=== PATIENT | male | born 1935 | race Caucasian/White ===

== ENCOUNTER 2022-03-30 12:10 | Inpatient (IN) | payer MEDICARE, OTHER ==
[~2022-03-30] VITALS: Ht 165.1 cm; Wt 59.9 kg
--- NOTE | 2022-03-30 12:23 | NUR ---
BLOOD DRAWN AND SENT TO LAB
[2022-03-30] MEDS ORDERED: VANCOMYCIN 1 GM in IV D5W 250 ML IV ONE (12:30)
[2022-03-30] MEDS ORDERED: CEFEPIME 1 GM in IV D5W 50 ML IV ONE (12:30)
--- NOTE | 2022-03-30 12:30 | NUR ---
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 PLACED ON BED, AAOX2, UNLABORED BREATHING SATURATING AT 97% WITH 2LIT O2 VIA NC. KNOWN HX OF COPD, ABNORMAL POSTURE, MUSCLE WASTING AND ATROPHY.
--- NOTE | 2022-03-30 12:43 | NUR ---
MOVE SHEET SUBMITTED.
[2022-03-30 12:55] LABS: CALCIUM, SERUM 8.2 mg/dL (8.5-10.1); CARBON DIOXIDE 25 mmol/L (21-32); CHLORIDE 104 mmol/L (98-107); CREATININE 1.3 mg/dL (0.6-1.3); GLUCOSE 161 mg/dL (74-106); POTASSIUM 5.1 mmol/L (3.5-5.1); SODIUM SERUM 138 mmol/L (136-145); UREA NITROGEN, BLOOD 46 mg/dL (7-18)
[2022-03-30 13:01] LABS: ALANINE AMINOTRANSFERASE 68 U/L (12-78); ALBUMIN 2.7 g/dL (3.4-5.0); ALKALINE PHOSPHATASE 136 U/L (46-116); ASPARTATE AMINOTRANSFERASE 60 U/L (15-37); BILIRUBIN,DIRECT 0.2 mg/dL (0.0-0.2); BILIRUBIN,TOTAL 0.9 mg/dL (0.2-1.0); TOTAL PROTEIN, SERUM 6.3 g/dL (6.4-8.2)
[2022-03-30 13:06] LABS: BASOPHILS # (AUTO) 0.2 K/uL (0.0-0.2); BASOPHILS % (AUTO) 0.4 % (0.0-2.0); HEMATOCRIT 34 % (39-51); LYMPHOCYTES # (AUTO) 0.6 K/uL (0.8-4.8); LYMPHOCYTES % (AUTO) 1.5 % (20.0-44.0); MEAN CORPUSCULAR HGB CONC 32 g/dl (31.0-36.0); MEAN CORPUSCULAR VOLUME 102 fL (80-96); MONOCYTES % (AUTO) 2.4 % (2.0-12.0); NEUTROPHILS # (AUTO) 38.7 K/uL (1.8-8.9); NEUTROPHILS % (AUTO) 95.7 % (43.0-81.0); PLATELET COUNT (AUTO) 197 K/uL (150-450); RED BLOOD CELL COUNT(AUTO) 3.34 MIL/uL (4.5-6.0)
--- NOTE | 2022-03-30 13:06 | NUR ---
COVID TEST COLLECTED AND SENT
[2022-03-30] MEDS ORDERED: ACETAMINOPHEN 650 MG/SUPP.RECT RC ONE ×2 (13:07→13:30)
[2022-03-30 13:09] LABS: WHITE BLOOD COUNT (AUTO) 40.4 K/uL (4.3-11.0)
[2022-03-30] MEDS ORDERED: LEVE250T2 PO (13:10)
[2022-03-30] MEDS ORDERED: BISA10SU11 RC (13:10)
[2022-03-30] MEDS ORDERED: DOXY100C2 PO (13:10)
[2022-03-30] MEDS ORDERED: DOCU-141 PO (13:10)
[2022-03-30] MEDS ORDERED: CHOL100043 PO (13:10)
[2022-03-30] MEDS ORDERED: MULT-447 PO (13:10)
[2022-03-30] MEDS ORDERED: IPRA4AER IH (13:10)
[2022-03-30] MEDS ORDERED: NA P133E RC (13:10)
[2022-03-30] MEDS ORDERED: FURO-145 PO (13:10)
[2022-03-30] MEDS ORDERED: AMIN30LI2 PO (13:10)
[2022-03-30] MEDS ORDERED: MAGN400O6 PO (13:10)
[2022-03-30] MEDS ORDERED: IVER3TAB2 PO (13:10)
[2022-03-30] MEDS ORDERED: PERM60CR4 TP (13:10)
[2022-03-30] MEDS ORDERED: FLUT1BLS IH (13:10)
[2022-03-30] MEDS ORDERED: ACET-868 PO (13:10)
[2022-03-30] MEDS ORDERED: RIVA10TA PO (13:10)
--- NOTE | 2022-03-30 13:18 | NUR ---
PANEL ON-CALL PAGED
[2022-03-30 14:00] LABS: BILIRUBIN,URINE NEGATIVE (NEGATIVE); COLOR,URINE YELLOW (YELLOW); LEUKOCYTE ESTERASE ,URINE SMALL (NEGATIVE); NITRITE, URINE NEGATIVE (NEGATIVE); PROTEIN,URINE 30 mg/dl (NEGATIVE); UGLUCOSE NEGATIVE (NEGATIVE)
[2022-03-30 14:03] LABS: BACTERIA,URINE Rare /HPF (None Seen); RBC,URINE 0-2 /HPF (0-2); SQUAMOUS EPITHELIAL CELL,UR Few /HPF (None Seen)
[2022-03-30] MEDS ORDERED: MAGNESIUM HYDROXIDE 30 ML UDC PO PRN (15:00)
[2022-03-30] MEDS ORDERED: Z GUARD REMEDY 4 OZ OINT TP PRN (15:00)
[2022-03-30] MEDS ORDERED: ONDANSETRON HCL/PF 4 MG/2 ML VIAL IVP PRN (15:00)
[2022-03-30] MEDS ORDERED: NA PHOS,M-B/NA PHOS,DI-BA 1 EA ENEMA RC PRN (15:00)
[2022-03-30] MEDS ORDERED: BISACODYL SUPP (10 MG) 10 MG/SUPP.RECT SUPP.RECT RC PRN (15:00)
[2022-03-30] MEDS ORDERED: IV NS 0.9% 1,000 ML IV PRN (15:00)
[2022-03-30] MEDS ORDERED: MAG HYDROX/AL HYDROX/SIMETH 30 ML UDC PO PRN (15:00)
[2022-03-30 15:01] LABS: LYMPHOCYTES % (MANUAL) 4 % (16-48); MONOCYTES % (MANUAL) 3 % (0-11.0); NEUTROPHILS % (MANUAL) 92 (42-76)
[2022-03-30 15:02] LABS: BASOPHILS % (MANUAL) 0 % (0.0-2.0); EOSINOPHILS % (MANUAL) 1 % (0-4)
--- NOTE | 2022-03-30 18:10 | NUR ---
CONTACTED DR PALACIO WITH REGARDS TO PATIENT BP-76/36 ON A LOW SIDE FOR 3CONSECUTIVE READINGS- NO RESPONSE.
--- NOTE | 2022-03-30 18:30 | NUR ---
BED 105
--- NOTE | 2022-03-30 18:39 | NUR ---
REPORT GIVEN TO ENOCH BRADSHAW FOR SHOLA
--- NOTE | 2022-03-30 19:10 | NUR ---
DR PALACIO RESPONDED TO GIVE IV BOLUS 0.9 NS 1LIT- COMMENCED FOR LOW BP.
[2022-03-30] MEDS ORDERED: LEVETIRACETAM (250 MG) 250 MG TABLET PO ONE (21:09)
[2022-03-30] MEDS: LEVETIRACETAM (250 MG) 250 MG TABLET PO SCH (21:16)
--- NOTE | 2022-03-30 21:45 | NUR ---
LEVOPHED INITIATED AT 0.1MCG/KG/MIN FOR HYPOTENSION AT 18G TYLOR
[2022-03-30] MEDS: NOREPINEPHRINE 8 MG in IV NS 0.9% 242 ML IV PRN (21:46)
--- NOTE | 2022-03-30 21:55 | NUR ---
PT REMIANS HYPOTENSIVE. LEVOPHED TITRATED UP TO 0.2MCG/KG/MIN
--- NOTE | 2022-03-30 22:49 | NUR ---
[id number]
--- NOTE | 2022-03-30 22:56 | NUR ---
LEVOPHED TITRATED UP TO 0.3MCG/KG/MIN
--- NOTE | 2022-03-30 23:59 | NUR ---
REPORT GIVEN TO VANDANA
[2022-03-31] VITALS (68 sets, daily range): BP systolic 39–130; BP diastolic 31–83
--- NOTE | 2022-03-31 00:15 | NUR ---
LEVOPHED TITRATED UP TO 0.3MCG/KG/MIN
--- NOTE | 2022-03-31 00:52 | NUR ---
PT TRANSPORTED TO ROOM 261 VIA [facility] IN STABLE CONDITION
[2022-03-31 04:41] LABS: BASOPHILS # (AUTO) 0.1 K/uL (0.0-0.2); BASOPHILS % (AUTO) 0.3 % (0.0-2.0); HEMATOCRIT 34 % (39-51); HEMOGLOBIN 10.9 g/dL (13.5-17.5); LYMPHOCYTES # (AUTO) 0.6 K/uL (0.8-4.8); LYMPHOCYTES % (AUTO) 1.3 % (20.0-44.0); MEAN CORPUSCULAR HGB CONC 32 g/dl (31.0-36.0); MEAN CORPUSCULAR VOLUME 102 fL (80-96); MONOCYTES # (AUTO) 1.3 K/uL (0.1-1.30); MONOCYTES % (AUTO) 2.9 % (2.0-12.0); NEUTROPHILS # (AUTO) 43.1 K/uL (1.8-8.9); NEUTROPHILS % (AUTO) 95.5 % (43.0-81.0); PLATELET COUNT (AUTO) 163 K/uL (150-450); RED BLOOD CELL COUNT(AUTO) 3.29 MIL/uL (4.5-6.0)
[2022-03-31 04:58] LABS: WHITE BLOOD COUNT (AUTO) 45.1 K/uL (4.3-11.0)
[2022-03-31 05:13] LABS: ALANINE AMINOTRANSFERASE 70 U/L (12-78); ALBUMIN 2.4 g/dL (3.4-5.0); ALKALINE PHOSPHATASE 118 U/L (46-116); ASPARTATE AMINOTRANSFERASE 110 U/L (15-37); BILIRUBIN,DIRECT 0.7 mg/dL (0.0-0.2); BILIRUBIN,TOTAL 1.8 mg/dL (0.2-1.0); CARBON DIOXIDE 28 mmol/L (21-32); CHLORIDE 104 mmol/L (98-107); CREATININE 1.4 mg/dL (0.6-1.3); GLUCOSE 52 mg/dL (74-106); MAGNESIUM 1.9 mg/dL (1.8-2.4); PHOSPHORUS 3.1 mg/dL (2.5-4.9); SODIUM SERUM 138 mmol/L (136-145); TOTAL PROTEIN, SERUM 5.9 g/dL (6.4-8.2); UREA NITROGEN, BLOOD 44 mg/dL (7-18)
[2022-03-31 05:39] LABS: BAND % (MANUAL) 4 % (0.0-5.0); LYMPHOCYTES % (MANUAL) 4 % (16-48); MONOCYTES % (MANUAL) 2 % (0-11.0); NEUTROPHILS % (MANUAL) 80 (42-76)
[2022-03-31] MEDS ORDERED: NOREPINEPHRINE 8MG/250ML RTU 250 ML IV ONE (06:41)
[2022-03-31] MEDS: NOREPINEPHRINE 8 MG in IV NS 0.9% 242 ML IV PRN (06:47)
--- NOTE | 2022-03-31 07:52 | NUR ---
DATA INTEGRITY CONSULTANT. AM CARE GIVEN. REMAINING SAME OXYGEN TOLERATED WELL. SAT 98%. LEVOPHED 0.2MCG/KG/MIN VIDEO CONFERENCE SPECIALIST SHOWING S TACH. FC PATENT.. URINE DRAINING. WILL CONTINUE TO MONITOR VITALS..
--- NOTE | 2022-03-31 08:15 | NUR ---
ICU/RN SUGAR 50 AND [address] OLVERA. ORDERED TO SWITCH NS AT D5NS AT 100CC/HR, GIVE ORANGE JUICE PO IF ABLE TO SWALLOW SAFELY, AND GIVE 1/2AMP OF D50 NEEDED IF PT UNABLE TO DRINK ORANGE JUICE. ORDER ENTERED REPORT GIVEN TO MARIELENA BRADSHAW FOR SHOLA.
[2022-03-31] MEDS: IV D5/ 0.9% NACL 1,000 ML IV PRN ×2 (08:29→18:45)
[2022-03-31] MEDS ORDERED: DEXTROSE 50%-WATER 50 ML DISP.SYRIN IVP PRN (08:30)
[2022-03-31] MEDS: LEVETIRACETAM (250 MG) 250 MG TABLET PO SCH ×2 (08:36→21:58)
--- NOTE | 2022-03-31 08:37 | NUR ---
RN NOTES BS-47MG/DL ADMINISTERED DEXTROSE 25 ML IV PUSH , ALSO SEEN HOSPITALIST GET ORDER HYDROCORTISONE SOD 100 ML Q 8H, ORDER TAKEN AND CARRIED OUT. ADMINISTERED TWO ORANG JUICERS, PATIENT ASKING FOOD GET DIET ORDER REGULAR PUREED. WILL FOLLOW UP.
[2022-03-31] MEDS: HYDROCORTISONE SOD SUCCINATE 100 MG/2 ML VIAL IV SCH ×3 (08:41→21:58)
--- NOTE | 2022-03-31 09:17 | NUR ---
RN NOTES BS-110 MG/DL, RUNNING D5NS@100 ML/HR, ALSO GET INSERTED ESTIVEN MIDLINE INTACT . BP- 102/32, P-113, O2-96 % PATIENT ON 3LNC. CONTRACTED, OFFERED SOME SNACKS.
[2022-03-31] MEDS: FLUTICASONE/VILANTEROL 1 EACH BLST.W.DEV IH SCH (09:24)
--- NOTE | 2022-03-31 10:55 | NUR ---
rn notes collected covid -19 specimen at this time., per Dr erazo order.
[2022-03-31] MEDS: CEFEPIME 2 GM in IV D5W 100 ML IV SCH (12:30)
[2022-03-31] MEDS: NOREPINEPHRINE 32 MG in IV NS 0.9% 218 ML IV PRN (13:06)
[2022-03-31] MEDS: IV NS 0.9% 250 ML IV PRN (13:16)
--- NOTE | 2022-03-31 13:18 | NUR ---
rn notes patient NPO except Meds per Dr Gonzalez order .
[2022-03-31] MEDS ORDERED: VANCOMYCIN HCL 0.75 GM in IV D5W 250 ML IV SCH (14:00)
--- NOTE | 2022-03-31 15:12 | NUR ---
RN NOTES BLOOD CULTURE GET CALL FROM LAB BLOOD CULTURE BOTH POSITIVE COCCI IN [place], NOTIFIED HOSPITALIST , AND GET ORDER VANCOMYCIN PER PHARMACY.
--- NOTE | 2022-03-31 18:30 | NUR ---
rn notes pm care done, bs-187mg/dl, due medication administered, infusing Levophed 0.3 mcg/ml/min, and d5ns@100ml/hr intact on lyly midline intact, urine output was 680ml, bm x1, assist turn and reposition q 2 hr. patient refused pain, no acute respiratory distress, patient on o2-3lNC. endorsed oncoming nurse follow plan of care.
--- NOTE | 2022-03-31 19:32 | NUR ---
BOX OFFICE AGENT. INITIAL ASSESSMENT. RECEIVED THE PT REST IN BED. AWAKE, ALERT. PT HAS MUSCLE CONTRACTION. NPO. OXYGEN 3L VIA NASAL CANNULA. SAT 98%. NO ACUTE DISTRESS NOTED. SERVICES ADVISOR SHOWING NSR. FC PATENT.URINE DRAINING, IV RT AND LT HAND PIV AND RT UPPER ARM MID LINE. IVF D5NS 100ML/H. LEVOPHED 0.2MCG/KG/MIN, WILL CONTINUE TO MONITOR VITALS.
[2022-04-01] VITALS (65 sets, daily range): BP systolic 41–140; BP diastolic 23–102
--- NOTE | 2022-04-01 03:14 | NUR ---
sericulturist. am care given. remaining same oxygen tolerated well. sat 98%. hob elevated. turn and reposition q2h. iv rt upp er arm mid line. ivf d5ns 100ml/h. levophed 0.2mcg/kg/min. fc patent. will continue to monitor vitals.
[2022-04-01] MEDS: IV D5/ 0.9% NACL 1,000 ML IV PRN ×2 (04:50→15:45)
[2022-04-01] MEDS: HYDROCORTISONE SOD SUCCINATE 100 MG/2 ML VIAL IV SCH ×3 (05:03→21:02)
[2022-04-01 05:09] LABS: HEMATOCRIT 32 % (39-51); HEMOGLOBIN 10.4 g/dL (13.5-17.5); LYMPHOCYTES # (AUTO) 0.6 K/uL (0.8-4.8); LYMPHOCYTES % (AUTO) 1.4 % (20.0-44.0); MEAN CORPUSCULAR HGB CONC 32 g/dl (31.0-36.0); MEAN CORPUSCULAR VOLUME 102 fL (80-96); MONOCYTES # (AUTO) 1.8 K/uL (0.1-1.30); NEUTROPHILS # (AUTO) 42.3 K/uL (1.8-8.9); NEUTROPHILS % (AUTO) 94.6 % (43.0-81.0); PLATELET COUNT (AUTO) 179 K/uL (150-450); RED BLOOD CELL COUNT(AUTO) 3.14 MIL/uL (4.5-6.0)
[2022-04-01 05:20] LABS: WHITE BLOOD COUNT (AUTO) 44.8 K/uL (4.3-11.0)
[2022-04-01 05:25] LABS: BAND % (MANUAL) 2 % (0.0-5.0); LYMPHOCYTES % (MANUAL) 5 % (16-48)
[2022-04-01 05:26] LABS: MONOCYTES % (MANUAL) 3 % (0-11.0)
[2022-04-01 05:37] LABS: CALCIUM, SERUM 7.8 mg/dL (8.5-10.1); CARBON DIOXIDE 25 mmol/L (21-32); CHLORIDE 105 mmol/L (98-107); CREATININE 1.2 mg/dL (0.6-1.3); GLUCOSE 157 mg/dL (74-106); POTASSIUM 4.5 mmol/L (3.5-5.1); SODIUM SERUM 135 mmol/L (136-145); UREA NITROGEN, BLOOD 37 mg/dL (7-18)
--- NOTE | 2022-04-01 07:15 | NUR ---
RN OPENING NOTE RECEIVED THE PT REST IN BED. AOX3. ABLE TO MAKE NEEDS KNOWN. PT HAS MUSCLE CONTRACTION. NPO EXCEPT MEDS. OXYGEN 3L VIA NASAL CANNULA. SAT 96%. NO ACUTE DISTRESS NOTED. SIPHONER SHOWING ST. FC PATIENT DRAINING CLEAR YELLOW URINE VIA GRAVITY. IV ACCESS ESTIVEN MIDLINE #20G, LW #22G, AND L HAND #22G. IVF D5NS 100ML/H. LEVOPHED 0.2MCG/KG/MIN, WILL CONTINUE TO MONITOR VITALS. ALL SAFETY MEASURES IN PLACE, BED LOCKED IN LOWEST POSITION, CALL LIGHT WITHIN REACH.
[2022-04-01] MEDS: ACETAMINOPHEN 325 MG TABLET PO PRN (09:30)
[2022-04-01] MEDS: LEVETIRACETAM (250 MG) 250 MG TABLET PO SCH ×2 (09:30→21:02)
[2022-04-01] MEDS: FLUTICASONE/VILANTEROL 1 EACH BLST.W.DEV IH SCH (09:30)
[2022-04-01] MEDS: NOREPINEPHRINE 32 MG in IV NS 0.9% 218 ML IV PRN (12:38)
[2022-04-01] MEDS: CEFEPIME 2 GM in IV D5W 100 ML IV SCH (13:15)
[2022-04-01] MEDS: IV NS 0.9% 250 ML IV PRN (17:09)
--- NOTE | 2022-04-01 19:30 | NUR ---
LANDFILL GAS PLANT FIELD TECHNICIAN NOTES RECEIVED PT FOR SHOLA. PT A/OX2-3 IN BED RESTING COMFORTABLY. PATIENT IN NO S/SX OF ACUTE DISTRESS AT THIS TIME. NO SOB NOTED. PATIENT'S BREATHING IS EVEN AND UNLABORED. PATIENT ON 3L OF O2 VIA NC TOLERATING WELL WITH O2 SAT OF 99% AT THIS TIME. ST ON MONITOR. ON PUREED DIET; TOLERATES WELL. IV SITE ON L UA #20, L HAND#20 AND R UA MIDLINE#18;ALL PATENT, INTACT AND FLUSHING WELL; NO S/S OF INFECTION OR INFILTRATION. WITH LEVO RUNNING; RECEIVED AT 0.2MCG/KG/MIN INFUSING PER PROTOCOL. ALSO IV FLUID RUNNING ORDERED. WITH BLACK CATH IN PLACE, MODERATE URINE OUTPUT NOTED.SAFETY MEASURES HAVE BEEN PROVIDED AND IMPLEMENTED. PATIENT BED ALARM IS ON. HEAD OF BED ELEVATED. BED IS LOCKED, IN LOWEST POSITION AND SIDE RAILS UP. CALL LIGHT WITHIN REACH OF THE PATIENT. WILL CONTINUE TO MONITOR AND REASSESS FOR ANY CHANGES AND WILL CARRY OUT ANY ONGOING AND ACTIVE MD ORDER.
--- NOTE | 2022-04-01 19:35 | NUR ---
RN CLOSING NOTE PT RESTING IN BED. AOX3. ABLE TO MAKE NEEDS KNOWN. PT HAS MUSCLE CONTRACTION. OXYGEN 3L VIA NASAL CANNULA 02 SAT OF 99. CONFIGURATION RELEASE MANAGER READING SR WITH HR 100. NO ACUTE DISTRESS NOTED. FC PATIENT DRAINING CLEAR YELLOW URINE VIA GRAVITY. IV ACCESS ESTIVEN MIDLINE #20G, LW #22G, AND L HAND #22G. IVF D5NS 100ML/HR. ALL SAFETY MEASURES IN PLACE, BED LOCKED IN LOWEST POSITION, CALL LIGHT WITHIN REACH. WILL ENDORSE CONTINUITY OF CARE TO PARAPROFESSIONAL AIDE TEACHER NURSE.
[2022-04-02] VITALS (100 sets, daily range): BP systolic 49–140; BP diastolic 23–96
[2022-04-02] MEDS: IV D5/ 0.9% NACL 1,000 ML IV PRN ×3 (02:07→22:27)
[2022-04-02 04:40] LABS: HEMATOCRIT 32 % (39-51); HEMOGLOBIN 10.3 g/dL (13.5-17.5); LYMPHOCYTES # (AUTO) 0.7 K/uL (0.8-4.8); LYMPHOCYTES % (AUTO) 2.2 % (20.0-44.0); MEAN CORPUSCULAR HGB CONC 32 g/dl (31.0-36.0); MEAN CORPUSCULAR VOLUME 103 fL (80-96); MONOCYTES # (AUTO) 1.6 K/uL (0.1-1.30); MONOCYTES % (AUTO) 4.8 % (2.0-12.0); NEUTROPHILS # (AUTO) 30.6 K/uL (1.8-8.9); PLATELET COUNT (AUTO) 167 K/uL (150-450); RED BLOOD CELL COUNT(AUTO) 3.13 MIL/uL (4.5-6.0)
[2022-04-02] MEDS: HYDROCORTISONE SOD SUCCINATE 100 MG/2 ML VIAL IV SCH ×3 (05:28→21:16)
[2022-04-02 05:50] LABS: BAND % (MANUAL) 3 % (0.0-5.0); BASOPHILS % (MANUAL) 0 % (0.0-2.0); EOSINOPHILS % (MANUAL) 0 % (0-4); LYMPHOCYTES % (MANUAL) 2 % (16-48); MONOCYTES % (MANUAL) 2 % (0-11.0); NEUTROPHILS % (MANUAL) 93 (42-76)
--- NOTE | 2022-04-02 06:51 | NUR ---
PIE BAKER CLOSING NOTES PATIENT REMAINS IN ROOM IN NO SIGNS OF RESPIRATORY DISTRESS, PATIENT NOW ON 2L OF O2 VIA NC SATURATING @ >95% SP02. SAFETY MEASURES IMPLEMENTED, BED IN LOWEST POSITION, LOCKED, SIDE RAILS UP, CALL LIGHT WITHIN REACH. ALL NEEDS AND ORDERS ADDRESSED DURING THE SHIFT. IV ACCESS MAINTAINED INTACT, SECURED AND FLUSHING WELL. ALL DUE MEDS GIVEN ORDERED & SCHEDULED ; PATIENT TOLERATED WELL. STILL WITH ONGOING DRIP LEVO DRIP @0.2MCG/KG/MIN RUNNING AND MONITORED PER PROTOCOL. ALSO HAS RUNNING IV FLUID ORDERED. PATIENT KEPT CLEAN AND COMFORTABLE WITHIN THE SHIFT. PATIENT ENDORSED TO INCOMING SHIFT RN WITH STABLE VITAL SIGN AND FOR CONTINUITY OF CARE.
--- NOTE | 2022-04-02 07:40 | NUR ---
RN/ICU PT RECEIVED IN BED ALERT AND ABLE TO ANSWER QUESTIONS AND FOLLOW COMMANDS. ON NASAL CANULA 2L BREATHING EVENLY AND UNLABORED NO S/S OF DISTRESS OF ANY KIND. MIDLINE IN PLACE AND PATENT RUNNING D5NS. ON LEVO 0.2 VITAL SIGNS WNL. BLACK CATHETER IN PLACE AND DRAINING YELLOW URINE. BED LOCKED HOB ELEVATED X3 SIDE RAILS UP CALL LIGHT WITHIN REACH.
[2022-04-02] MEDS: LEVETIRACETAM (250 MG) 250 MG TABLET PO SCH ×2 (08:18→21:16)
[2022-04-02] MEDS: FLUTICASONE/VILANTEROL 1 EACH BLST.W.DEV IH SCH (09:01)
[2022-04-02] MEDS: CEFEPIME 2 GM in IV D5W 100 ML IV SCH (12:51)
--- NOTE | 2022-04-02 19:36 | NUR ---
RN /ICU CLOSING PT AWAKE A/O X2 ABLE TO FOLLOW COMMANDS. ON 2L NC SAT 90% BREATHING IS EVEN AND UNLABORED NO S/S OF DISTRESS. VITAL WNL BED LOCK X3 SIDE RAILS UP HOB ELEVATED 30 DEGREES
[2022-04-03] VITALS (39 sets, daily range): BP systolic 84–147; BP diastolic 38–83
[2022-04-03] MEDS: HYDROCORTISONE SOD SUCCINATE 100 MG/2 ML VIAL IV SCH ×2 (04:26→21:14)
--- NOTE | 2022-04-03 07:53 | NUR ---
RN/ ICU OPENING PT RECEIVED AWAKE AND ALERT ABLE TO MAKE NEEDS KNOWN ON ROOM AIR. PT OFF PRESSORS WILL CONTINUE TO MONITOR FOR STABLE BPS THOUGHT SHIFT CURRENTLY 98/74. NO FEVER, COUGH OR SECRETIONS. BED LOCKED , HOB ELEVATED, ON D5NS 100ML/H.
[2022-04-03] MEDS: IV D5/ 0.9% NACL 1,000 ML IV PRN ×2 (08:15→19:49)
[2022-04-03] MEDS: FLUTICASONE/VILANTEROL 1 EACH BLST.W.DEV IH SCH (09:00)
[2022-04-03] MEDS: LEVETIRACETAM (250 MG) 250 MG TABLET PO SCH ×2 (09:00→21:14)
[2022-04-03] MEDS: CEFEPIME 2 GM in IV D5W 100 ML IV SCH (13:08)
[2022-04-03 17:55] LABS: CALCIUM, SERUM 6.8 mg/dL (8.5-10.1); POTASSIUM 3.5 mmol/L (3.5-5.1)
[2022-04-04] VITALS (12 sets, daily range): BP systolic 99–123; BP diastolic 54–81
[2022-04-04 04:16] LABS: BASOPHILS % (AUTO) 0.1 % (0.0-2.0); HEMATOCRIT 31 % (39-51); HEMOGLOBIN 10.2 g/dL (13.5-17.5); LYMPHOCYTES # (AUTO) 0.8 K/uL (0.8-4.8); LYMPHOCYTES % (AUTO) 5.2 % (20.0-44.0); MEAN CORPUSCULAR HGB CONC 33 g/dl (31.0-36.0); MEAN CORPUSCULAR VOLUME 102 fL (80-96); MONOCYTES # (AUTO) 1.3 K/uL (0.1-1.30); MONOCYTES % (AUTO) 8.1 % (2.0-12.0); NEUTROPHILS # (AUTO) 14.1 K/uL (1.8-8.9); NEUTROPHILS % (AUTO) 86.6 % (43.0-81.0); PLATELET COUNT (AUTO) 131 K/uL (150-450); RED BLOOD CELL COUNT(AUTO) 3.04 MIL/uL (4.5-6.0); WHITE BLOOD COUNT (AUTO) 16.3 K/uL (4.3-11.0)
[2022-04-04 04:24] LABS: CALCIUM, SERUM 7.9 mg/dL (8.5-10.1); CARBON DIOXIDE 25 mmol/L (21-32); CHLORIDE 112 mmol/L (98-107); CREATININE 0.9 mg/dL (0.6-1.3); GLUCOSE 156 mg/dL (74-106); POTASSIUM 4.3 mmol/L (3.5-5.1); SODIUM SERUM 140 mmol/L (136-145); UREA NITROGEN, BLOOD 33 mg/dL (7-18)
[2022-04-04] MEDS: IV D5/ 0.9% NACL 1,000 ML IV PRN ×2 (06:15→19:21)
--- NOTE | 2022-04-04 07:30 | NUR ---
RN NOTES PT FOUND LYING ON LEFT SIDE DISPLAYING NO S/S OF DISTRESS, PT ENDORSES NO PAIN AND IS BREATHING EVEN AND UNLABORED ON RA. PT INTERACTING WITH STAFF UPON QUESTIONING, SOME ELEMENTS OF CONFUSION (PT VERBALIZING NOT COLD TO RN BUT COLD TO MD UPON ROUNDING). R UA ML IS PATIENT AND INTACT. BLACK CATH RESERVOIR IS BELOW PATIENT DRAINING BY GRAVITY. RN WILL CONTINUE CARE PLAN AND ANTICIPATE NEEDS. SAFETY MEASURES IN PLACE, BED LOCKED AND IN LOWEST POSITION, SIDE RAILS UPX2, CALL LIGHT WITHIN REACH, PT INSTRUCTED TO CALL FOR ASSISTANCE, BED ALARM ARMED.
[2022-04-04] MEDS: FLUTICASONE/VILANTEROL 1 EACH BLST.W.DEV IH SCH (08:21)
[2022-04-04] MEDS: HYDROCORTISONE SOD SUCCINATE 100 MG/2 ML VIAL IV SCH (08:21)
[2022-04-04] MEDS: LEVETIRACETAM (250 MG) 250 MG TABLET PO SCH ×2 (08:21→21:07)
--- NOTE | 2022-04-04 09:00 | NUR ---
TRANSFER PT CLEARED FOR DOWNGRADE TO MS STATUS. RN TRANSPORTED PT VIA HOSPITAL BED, BELONGINGS CHECKED AND REVIEWED, CHART AND SBAR BROUGHT, RX BROUGHT WITH PATIENT. PT IS A&OX3-4, ABLE TO MAKE CONVERSATION WITH STAFF. BEDSIDE REPORT GIVEN TO BOWEN, ALL QUESTIONS ANSWERED. PT ENDORSED FOR SHOLA.
[2022-04-04] MEDS: CEFEPIME 2 GM in IV D5W 100 ML IV SCH (12:15)
--- NOTE | 2022-04-04 19:05 | NUR ---
RN OPENING NOTES RECEIVED PATIENT ON BED, A/0 X 3-4. AWAKE, VERBALLY RESPONSIVE. ON ROOM AIR SATING AT 94%. WITH ESTIVEN MID LINE, PATENT, INTACT, FLUSHED WITH NS. NO S/S OF INFILTRATION NOTED. WITH IVF NS @ 100 ML/HR. BLACK CATHETER PATENT INTACT DRAINING CLEAR YELLOW URINE VIA GRAVITY. REPOSITION EVERY 2 HRS. ALL SAFETY PRECAUTION PROVIDED, BED IN LOWEST POSITION, LOCKED. BED ALARM ARMED. CALL LIGHT WITH IN REACH. CONTINUE TO MONITOR.
[2022-04-05] VITALS: BP 120/54
--- NOTE | 2022-04-05 00:10 | NUR ---
RN NOTES PATIENT C/O OF SOB, V/S TAKEN T- 97.3, HR- 78, RR- 32, O2SAT- 92% ON ROOM AIR, BP- 120/54,. NOTIFIED MAGNETIC TAPE TYPEWRITER OPERATOR ADDIS CAMARENA WITH NEW ORDER STAT ABG AND STAT CXR NOTED AND CARRIED OUT. ADMINISTER NASAL CANULA @ 4LPM FOR COMFORT. CONTINUE TO MONITOR.
[2022-04-05 00:17] LABS: ABG BASE EXCESS -7.1 mmol/L; ABG OXYGEN SATURATION 95.6 % (92.0-98.5); ABG PCO2 29.1 mmHg (35.0-45.0); ABG PH 7.381 (7.350-7.450); ABG PO2 86.8 mmHg (75.0-100.0); AaDO2 164.9 mmHg; COHb 0.2 % (0.5-1.5); MetHb 0.2 % (0.0-1.5); O2Hb 95.2 % (94.0-97.0); SITE, ABG Left Radial; VENT MODE, BG 5L N/C
--- NOTE | 2022-04-05 02:10 | NUR ---
RN NOTES NOTIFIED SLAT BASKET MAKER HELPER CAMARENA REGARDING STAT ABG AND STAT CXR RESULT, NO NEW ORDER.
[2022-04-05 04:00] VITALS: BP 116/58
[2022-04-05] MEDS: IV D5/ 0.9% NACL 1,000 ML IV PRN ×2 (05:15→20:26)
[2022-04-05 06:35] LABS: BASOPHILS % (AUTO) 0.1 % (0.0-2.0); EOSINOPHILS % (AUTO) 0.1 % (0.0-6.0); HEMATOCRIT 29 % (39-51); HEMOGLOBIN 9.6 g/dL (13.5-17.5); LYMPHOCYTES # (AUTO) 1.4 K/uL (0.8-4.8); LYMPHOCYTES % (AUTO) 8.7 % (20.0-44.0); MEAN CORPUSCULAR HGB CONC 33 g/dl (31.0-36.0); MEAN CORPUSCULAR VOLUME 102 fL (80-96); MONOCYTES # (AUTO) 1.6 K/uL (0.1-1.30); MONOCYTES % (AUTO) 10.2 % (2.0-12.0); NEUTROPHILS # (AUTO) 12.7 K/uL (1.8-8.9); NEUTROPHILS % (AUTO) 80.9 % (43.0-81.0); PLATELET COUNT (AUTO) 142 K/uL (150-450); RED BLOOD CELL COUNT(AUTO) 2.86 MIL/uL (4.5-6.0); WHITE BLOOD COUNT (AUTO) 15.7 K/uL (4.3-11.0)
[2022-04-05 06:43] LABS: CALCIUM, SERUM 8.1 mg/dL (8.5-10.1); CREATININE 0.9 mg/dL (0.6-1.3); POTASSIUM 4.4 mmol/L (3.5-5.1)
--- NOTE | 2022-04-05 07:30 | NUR ---
RN OPENING NOTE PT OBSERVED IN BED SLEEPING. PT IS ON 4L NC TOLERATING WELL WITH NO SIGNS OF DISTRESS OR LABORED BREATHING O2 SAT 98%. PT IS A/OX3. FC IS IN PLACE DRAINING URINE TO GRAVITY. IV ACCESS R UA ML INFUSING WITH D5 NS @100ML/HR. BED IS LOCKED IN LOWEST POSITION X2 BED RAILS UP AND ALL HOSPITAL SAFETY PROTOCOLS ARE IN PLACE. WILL CONTINUE TO MONITOR THIS SHIFT.
[2022-04-05 08:00] VITALS: BP 118/61
[2022-04-05] MEDS: HYDROCORTISONE SOD SUCCINATE 100 MG/2 ML VIAL IV SCH (09:16)
[2022-04-05] MEDS: FLUTICASONE/VILANTEROL 1 EACH BLST.W.DEV IH SCH (09:17)
[2022-04-05] MEDS: LEVETIRACETAM (250 MG) 250 MG TABLET PO SCH ×2 (09:18→20:25)
[2022-04-05 12:00] VITALS: BP 118/61
[2022-04-05] MEDS: CEFEPIME 2 GM in IV D5W 100 ML IV SCH (13:38)
[2022-04-05 16:00] VITALS: BP 119/64
--- NOTE | 2022-04-05 18:38 | NUR ---
RN CLOSING NOTE PT IS IN BED SLEEPING. PT IS ON 4L NC TOLERATING WELL WITH NO SIGNS OF DISTRESS OR LABORED BREATHING O2 SAT 97%. PT IS A/OX3. FC IS IN PLACE DRAINING URINE TO GRAVITY -400ML. PT HAD NO BM TODAY. IV ACCESS R UA ML INFUSING WITH D5 NS @100ML/HR. BED IS LOCKED IN LOWEST POSITION X2 BED RAILS UP AND ALL HOSPITAL SAFETY PROTOCOLS ARE IN PLACE. WILL ENDORSE TO CALIBRATION SPECIALIST NURSE FOR SHLOA. Addendum: 04/05/22 at 1936 by MAHAD HORN RN RN NOTE PT REFUSED TO EAT ALL MEANS AND DRINK FLUIDS. PT DID TAKE CRUSHED MEDICATIONS WITH APPLESAUCE.
[2022-04-05 20:00] VITALS: BP 133/85
--- NOTE | 2022-04-05 20:00 | NUR ---
RN OPEN NOTE: AWAKE, AND RESPONSIVE TO VERBAL STIMULI. ALERT TO NAME. REORIENTED TO TIME, PLACE AND SITUATION. MOIST ORAL MUCOSA. ON O2 4LPM NC. O2 SAT AT 100%. RIGHT UPPER ARM MIDLINE, PATENT WITH NO S/S OF COMPLICATIONS. IVF INFUSING AT D5NS AT 75ML/HR. NO S/S OF FLUID OVERLOAD. BLACK CATHETER DRAINING YELLOW URINE. CONTINUES WITH RIGHT HIP DTI, RIGHT UPPER POSTERIOR ARM PURPLE DISCOLORED AREA, RIGHT CHEST PURPLE DISCOLORED AREA, SACRUM REDNESS, AND BILATERAL HANDS SCABS WILL TAKE PICTURES. REPOSITIONED WITH PILLOWS. HOB ELEVATED AT 30 DEGREE ANGLE, BILATERAL HALF SIDE RAIL UP X2. BED LOCKED, IN LOW POSITION, EXIT ALARM, AND CALL LIGHT IN REACH, DECLINES PAIN OR DISCOMFORT.
--- NOTE | 2022-04-06 02:00 | NUR ---
AWAKE AND RESPONSIVE TO VERBAL STIMULI. RT POSTERIOR ARM PURPLE DISCOLORED SKIN, RT CHEST PURPLE DISCOLORED SKIN, RT HIP DTI, SACRAL REDNESS, AND BILATERAL HAND SCABS PICTURES TAKEN TRIGGER WOUND CONSULT. TURNED AND REPOSITIONED WITH PILLOWS. CALL LIGHT IN REACH.
[2022-04-06 03:09] VITALS: BP 132/84
[2022-04-06 06:17] LABS: BASOPHILS % (AUTO) 0.1 % (0.0-2.0); HEMATOCRIT 30 % (39-51); HEMOGLOBIN 9.8 g/dL (13.5-17.5); LYMPHOCYTES # (AUTO) 1.2 K/uL (0.8-4.8); LYMPHOCYTES % (AUTO) 8.8 % (20.0-44.0); MEAN CORPUSCULAR HGB CONC 32 g/dl (31.0-36.0); MEAN CORPUSCULAR VOLUME 102 fL (80-96); MONOCYTES % (AUTO) 7.6 % (2.0-12.0); NEUTROPHILS # (AUTO) 10.9 K/uL (1.8-8.9); NEUTROPHILS % (AUTO) 82.5 % (43.0-81.0); PLATELET COUNT (AUTO) 140 K/uL (150-450); RED BLOOD CELL COUNT(AUTO) 2.95 MIL/uL (4.5-6.0); WHITE BLOOD COUNT (AUTO) 13.3 K/uL (4.3-11.0)
[2022-04-06] MEDS: IV D5/ 0.9% NACL 1,000 ML IV PRN (06:31)
[2022-04-06 06:35] LABS: CARBON DIOXIDE 26 mmol/L (21-32); CHLORIDE 116 mmol/L (98-107); CREATININE 0.9 mg/dL (0.6-1.3); GLUCOSE 94 mg/dL (74-106); POTASSIUM 4.5 mmol/L (3.5-5.1); SODIUM SERUM 146 mmol/L (136-145); UREA NITROGEN, BLOOD 26 mg/dL (7-18)
--- NOTE | 2022-04-06 06:37 | NUR ---
MED SURGE RN CLOSING NOTE: AWAKE, AND RESPONSIVE TO VERBAL STIMULI. ALERT TO NAME. REORIENTED TO TIME, PLACE AND SITUATION. MOIST ORAL MUCOSA. ON O2 4LPM NC. O2 SAT AT 98%. RIGHT UPPER ARM MIDLINE, PATENT WITH NO S/S OF COMPLICATIONS. IVF INFUSING AT D5NS AT 75ML/HR. NO S/S OF FLUID OVERLOAD. BLACK CATHETER DRAINING YELLOW URINE. CONTINUES WITH RIGHT HIP DTI, RIGHT UPPER POSTERIOR ARM PURPLE DISCOLORED AREA, RIGHT CHEST PURPLE DISCOLORED AREA, SACRUM REDNESS, AND BILATERAL HANDS SCABS. REPOSITIONED WITH PILLOWS. HOB ELEVATED AT 30 DEGREE ANGLE, BILATERAL HALF SIDE RAIL UP X2. BED LOCKED, IN LOW POSITION, EXIT ALARM, AND CALL LIGHT IN REACH, DECLINES PAIN OR DISCOMFORT.ABLE TO SLEEP WELL.
--- NOTE | 2022-04-06 07:28 | NUR ---
RN OPENING NOTE PT OBSERVED IN BED SLEEPING. PT IS ON 4L NC TOLERATING WELL WITH NO SIGNS OF DISTRESS OR LABORED BREATHING O2. PT IS A/OX2. FC IS IN PLACE DRAINING URINE TO GRAVITY. IV ACCESS R UA ML INFUSING WITH D5 NS @100ML/HR. BED IS LOCKED IN LOWEST POSITION X2 BED RAILS UP AND ALL HOSPITAL SAFETY PROTOCOLS ARE IN PLACE.
[2022-04-06 08:00] VITALS: BP 145/53
[2022-04-06] MEDS: LEVETIRACETAM (250 MG) 250 MG TABLET PO SCH ×2 (08:13→20:16)
[2022-04-06] MEDS: FLUTICASONE/VILANTEROL 1 EACH BLST.W.DEV IH SCH (08:13)
[2022-04-06] MEDS: HYDROCORTISONE SOD SUCCINATE 100 MG/2 ML VIAL IV SCH (08:13)
[2022-04-06] MEDS: CEFEPIME 2 GM in IV D5W 100 ML IV SCH (12:15)
--- NOTE | 2022-04-06 13:01 | NUR ---
WOUND CARE CONSULT: PT PRESENTS WITH SACRAL SCAR AND RT HIP INTACT DEEP TISSUE INJURY. 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 DUE TO MULTIPLE CO-MORBIDITIES, FURTHER SKIN BREAKDOWN MAY BE UNAVOIDABLE. DISCUSSED SKIN PROTECTION AND WOUND CARE RECOMMENDATIONS WITH NURSING STAFF. PT IS ON [facility] BED. IN AGREEMENT WITH PLAN OF CARE. Addendum: 04/06/22 at 1303 by FRANSICO WALTER WNDNU Amended: Links added.
[2022-04-06 16:00] VITALS: BP 95/51
[2022-04-06] MEDS: PROSOURCE / PROSTAT (PYXIS) 30 ML UDC GT SCH (17:31)
--- NOTE | 2022-04-06 18:43 | NUR ---
RN CLOSING NOTE PT IS IN BED SLEEPING. PT IS ON 4L NC TOLERATING WELL WITH NO SIGNS OF DISTRESS OR LABORED BREATHING. PT IS A/OX1. FC IS IN PLACE DRAINING URINE TO GRAVITY -425ML PT HAD NO BM TODAY. IV ACCESS R UA ML INFUSING TKO. BED IS LOCKED IN LOWEST POSITION X2 BED RAILS UP AND ALL HOSPITAL SAFETY PROTOCOLS ARE IN PLACE. WILL ENDORSE TO ARMED SECURITY PROFESSIONAL NURSE FOR SHOLA.
--- NOTE | 2022-04-06 19:41 | NUR ---
RN OPENING NOTE PT IS IN BED SLEEPING. PT IS ON 3L NC TOLERATING WELL WITH NO SIGNS OF DISTRESS OR LABORED BREATHING. PT IS A/OX1. FC IS IN PLACE DRAINING URINE TO GRAVITY. IV ACCESS R UA ML S/L. BED IS LOCKED IN LOWEST POSITION X2 BED RAILS UP AND ALL HOSPITAL SAFETY PROTOCOLS ARE IN PLACE.
--- NOTE | 2022-04-07 06:30 | NUR ---
RN CLOSING NOTE PT IS IN BED SLEEPING. PT IS ON 3L NC TOLERATING WELL WITH NO SIGNS OF DISTRESS OR LABORED BREATHING. PT IS A/OX1. FC IS IN PLACE DRAINING URINE TO GRAVITY. IV ACCESS R UA ML S/L. BED IS LOCKED IN LOWEST POSITION X2 BED RAILS UP AND ALL HOSPITAL SAFETY PROTOCOLS ARE IN PLACE. WILL ENDORSE SHOLA TO DAY SHIFT NURSE.
[2022-04-07 06:55] LABS: EOSINOPHILS % (AUTO) 1.5 % (0.0-6.0); HEMATOCRIT 30 % (39-51); HEMOGLOBIN 9.8 g/dL (13.5-17.5); LYMPHOCYTES # (AUTO) 1.1 K/uL (0.8-4.8); LYMPHOCYTES % (AUTO) 7.9 % (20.0-44.0); MEAN CORPUSCULAR HGB CONC 33 g/dl (31.0-36.0); MEAN CORPUSCULAR VOLUME 103 fL (80-96); MONOCYTES # (AUTO) 0.7 K/uL (0.1-1.30); MONOCYTES % (AUTO) 5.2 % (2.0-12.0); NEUTROPHILS # (AUTO) 11.4 K/uL (1.8-8.9); NEUTROPHILS % (AUTO) 85.4 % (43.0-81.0); PLATELET COUNT (AUTO) 171 K/uL (150-450); RED BLOOD CELL COUNT(AUTO) 2.89 MIL/uL (4.5-6.0); WHITE BLOOD COUNT (AUTO) 13.4 K/uL (4.3-11.0)
--- NOTE | 2022-04-07 07:12 | NUR ---
RN OPENING NOTE PT OBSERVED IN BED SLEEPING. PT IS ON 3L NC TOLERATING WELL WITH NO SIGNS OF DISTRESS OR LABORED BREATHING O2. PT IS A/OX2. FC IS IN PLACE DRAINING URINE TO GRAVITY. IV ACCESS R UA ML OPEN TO TKO . BED IS LOCKED IN LOWEST POSITION X2 BED RAILS UP AND ALL HOSPITAL SAFETY PROTOCOLS ARE IN PLACE.
[2022-04-07 07:19] LABS: CREATININE 0.9 mg/dL (0.6-1.3)
[2022-04-07] MEDS: LEVETIRACETAM (250 MG) 250 MG TABLET PO SCH ×2 (08:05→20:38)
[2022-04-07] MEDS: HYDROCORTISONE SOD SUCCINATE 100 MG/2 ML VIAL IV SCH (08:06)
[2022-04-07] MEDS: FLUTICASONE/VILANTEROL 1 EACH BLST.W.DEV IH SCH (08:08)
[2022-04-07] MEDS: PROSOURCE / PROSTAT (PYXIS) 30 ML UDC GT SCH ×2 (08:09→17:19)
[2022-04-07] MEDS ORDERED: CEFE2FRO IV (08:30)
[2022-04-07] MEDS: CEFEPIME 2 GM in IV D5W 100 ML IV SCH (14:08)
--- NOTE | 2022-04-07 14:29 | NUR ---
RN NOTES CALLED NEGRITA ORTIZ SPOKE TO LENKA RN GIVE DISCHARGE SUMMARY INSTRUCTIONS.
--- NOTE | 2022-04-07 14:31 | NUR ---
RN NOTES BLACK CATHETER REMOVED NO BLEEDING NOTED. PATIENT IS ABLE TO VOID IN THE DIAPER.
[2022-04-07] MEDS: ACETAMINOPHEN 325 MG TABLET PO PRN (14:59)
--- NOTE | 2022-04-07 15:45 | NUR ---
RN NOTE PATIENT TELE MONITOR A FIB- ORDERED EKG DR PALACIO MADE AWARE PATIENT HAS HX OF AFIB XERALTO D/C ON 03/30 NO ORDERS RECEIVED
--- NOTE | 2022-04-07 15:52 | NUR ---
RN NOTE PATIENTS DISCHARGE WAS PLACED ON HOLD DUE TO HR FLUCTUATING 98-137 AND MANUAL BLOOD PRESSURE 94/46. DR PALACIO INFORMED, CHARGE NURSE INFORMED.
--- NOTE | 2022-04-07 15:54 | NUR ---
RN NOTE PATIENT PLACED ON TELE MONITORING OKAY BY DR PALACIO
[2022-04-07 16:00] VITALS: BP 95/51
--- NOTE | 2022-04-07 18:39 | NUR ---
RN CLOSING NOTE PT IS IN BED SLEEPING. PT IS ON 3L NC TOLERATING WELL WITH NO SIGNS OF DISTRESS OR LABORED BREATHING. IV ACCESS R UA ML S/L. BED IS LOCKED IN LOWEST POSITION X2 BED RAILS UP AND ALL HOSPITAL SAFETY PROTOCOLS ARE IN PLACE. WILL ENDORSE TO SENIOR FUND ACCOUNTANT NURSE FOR SHOLA
[2022-04-07 20:00] VITALS: BP 123/62
[2022-04-07 21:56] LABS: BAND % (MANUAL) 2 % (0.0-5.0); EOSINOPHILS % (MANUAL) 2 % (0-4); LYMPHOCYTES % (MANUAL) 3 % (16-48); MONOCYTES % (MANUAL) 3 % (0-11.0); NEUTROPHILS % (MANUAL) 90 (42-76)
--- NOTE | 2022-04-07 22:29 | NUR ---
MARKETING DATABASE COORDINATOR OPENING NOTE PT RECEIVED IN BED, ASLEEP BUT EASILY AROUSABLE, A&O X1, CALM, COOPERATIVE. PT ON 3L NC WITH O2SAT OF 97%; NO S/S OF RESP DISTRESS, NO SOB OR COUGH, NON-LABORED AND EQUAL BREATHING. PT ATTACHED TO EXTERNAL MONITOR, ST WITH HR OF 103. ESTIVEN MIDLINE INTACT AND PATENT, FLUSHES EASILY WITH NO RESISTANCE; NO MEDS/FLUIDS INFUSING THROUGH IT. BED IN LOWEST POSITION, CALL LIGHT WITHIN REACH, SIDE RAILS UP X3. WILL CONTINUE TO MONITOR THROUGHOUT THE NIGHT.
[2022-04-08] VITALS: BP 116/70
[2022-04-08 04:00] VITALS: BP 108/62
--- NOTE | 2022-04-08 06:39 | NUR ---
MACHINE DESIGN TEACHER CLOSING NOTE PT REMAINS IN BED, AWAKE, A&O X1. CONTINUES TO BE ON 3L NC WITH O2SAT RANGING FROM 95%-99% WITH NO S/S OF RESP DISTRESS, NO SOB OR COUGH, NON-LABORED AND EQUAL BREATHING. ATTACHED TO EXTERNAL MONITOR AND IS AFIB-AFLUTTER WITH HR HIGH 118. ESTIVEN MIDLINE INTACT AND PATENT, FLUSHES EASILY WITH NO RESISTANCE. ALL DUE MEDS ADMINISTERED DURING THE NIGHT. BED IN LOWEST POSITION, CALL LIGHT WITHIN REACH, SIDE RAILS UP X3. WILL ENDORSE TO DAYSHIFT NURSE TO CONTINUE CARE.
--- NOTE | 2022-04-08 07:20 | NUR ---
telegraph service rater opening note patient in bed, awake,alert and oriented x1. patient is on 3l nasal cannula saturating at 98%.no signs of pain or discomfort. patient has right upper arm midline.iv intact and flushing well. patient is on tele monitor sinus tachycardia/afib. all safety measures in place. BED IN LOWEST POSITION, CALL LIGHT WITHIN REACH, SIDE RAILS UP X3. WILL ENDORSE TO DAYSHIFT NURSE TO CONTINUE CARE.
[2022-04-08 08:00] VITALS: BP 100/47
[2022-04-08 08:25] LABS: BASOPHILS % (AUTO) 0.1 % (0.0-2.0); EOSINOPHILS % (AUTO) 0.3 % (0.0-6.0); HEMATOCRIT 32 % (39-51); HEMOGLOBIN 10.1 g/dL (13.5-17.5); LYMPHOCYTES # (AUTO) 1.1 K/uL (0.8-4.8); LYMPHOCYTES % (AUTO) 8.2 % (20.0-44.0); MEAN CORPUSCULAR HGB CONC 32 g/dl (31.0-36.0); MEAN CORPUSCULAR VOLUME 104 fL (80-96); MONOCYTES # (AUTO) 0.7 K/uL (0.1-1.30); MONOCYTES % (AUTO) 5.1 % (2.0-12.0); NEUTROPHILS # (AUTO) 11.8 K/uL (1.8-8.9); NEUTROPHILS % (AUTO) 86.3 % (43.0-81.0); PLATELET COUNT (AUTO) 211 K/uL (150-450); RED BLOOD CELL COUNT(AUTO) 3.06 MIL/uL (4.5-6.0); WHITE BLOOD COUNT (AUTO) 13.7 K/uL (4.3-11.0)
[2022-04-08 08:35] LABS: CALCIUM, SERUM 7.9 mg/dL (8.5-10.1); POTASSIUM 4.1 mmol/L (3.5-5.1)
[2022-04-08] MEDS ORDERED: DIGO125T PO (09:44)
[2022-04-08] MEDS ORDERED: DIGOXIN ELIX UDC 0.25 MG/5 ML UDC PO ONE (10:00)
[2022-04-08] MEDS: HYDROCORTISONE SOD SUCCINATE 100 MG/2 ML VIAL IV SCH (10:24)
[2022-04-08] MEDS: PROSOURCE / PROSTAT (PYXIS) 30 ML UDC GT SCH (10:24)
[2022-04-08] MEDS: LEVETIRACETAM (250 MG) 250 MG TABLET PO SCH (10:41)
[2022-04-08] MEDS: FLUTICASONE/VILANTEROL 1 EACH BLST.W.DEV IH SCH (10:41)
--- NOTE | 2022-04-08 12:15 | NUR ---
patient discharged. gave report to [facility]. patient belongings list done. patient verbalized understanding.patient stable vital signs
[2022-04-08 22:31] LABS: BAND % (MANUAL) 1 % (0.0-5.0); EOSINOPHILS % (MANUAL) 1 % (0-4); LYMPHOCYTES % (MANUAL) 8 % (16-48); MONOCYTES % (MANUAL) 3 % (0-11.0); NEUTROPHILS % (MANUAL) 87 (42-76)
== END 2022-04-08 12:22 | DRG 871 ==
LOC: ER 12:12 → TRANSITION 14:36 → ICU 03-31 00:12 → MEDSG1 04-04 09:17 → TELE1 04-07 15:18
PROVIDERS: ADMIT Internal Medicine; ATTEND Internal Medicine
PROC: 05H533Z Insertion of Infusion Device into Right Subclavian Vein, Percutaneous Approach (ICD-10-PCS; principal; 2022-03-31)
PROC: B546ZZA Ultrasonography of Right Subclavian Vein, Guidance (ICD-10-PCS; 2022-03-31)
DX: A40.0 Sepsis due to streptococcus, group A (principal); E43 Unspecified severe protein-calorie malnutrition; J15.6 Pneumonia due to other Gram-negative bacteria; G93.41 Metabolic encephalopathy; J96.01 Acute respiratory failure with hypoxia; R65.21 Severe sepsis with septic shock; N17.0 Acute kidney failure with tubular necrosis; E87.1 Hypo-osmolality and hyponatremia; I48.20 Chronic atrial fibrillation, unspecified; J44.0 Chronic obstructive pulmonary disease with (acute) lower respiratory infection; N39.0 Urinary tract infection, site not specified; E27.40 Unspecified adrenocortical insufficiency; E86.0 Dehydration; E88.09 Other disorders of plasma-protein metabolism, not elsewhere classified; N18.9 Chronic kidney disease, unspecified; Z86.16 Personal history of COVID-19; G40.909 Epilepsy, unspecified, not intractable, without status epilepticus; I50.9 Heart failure, unspecified; R74.01 Elevation of levels of liver transaminase levels; M62.48 Contracture of muscle, other site; K21.9 Gastro-esophageal reflux disease without esophagitis; I27.20 Pulmonary hypertension, unspecified; Z20.822 Contact with and (suspected) exposure to COVID-19
CPT/HCPCS: 36410; 36415; 36600; 71045-TC; 80048-TC; 80076-TC; 81001; 82533; 82962-TC; 83605-TC; 83735-TC; 84100-TC; 84484-TC; 85025-TC; 85730-TC; 87040-TC; 87081-TC; 87086-TC; 87186-TC; 92526; 92611-TC; 93307-TC; 94799-TC; G0378; J0692; J1720; J3370; J3490; J7030; J7042; J7050; J7060; U0003